=== PATIENT | female | born 1995 | race Caucasian/White ===

== ENCOUNTER 2018-01-05 08:39 | Emergency (ER) | payer OTHER ==
[~2018-01-05] VITALS: Ht 167.6 cm; Wt 88.8 kg
[2018-01-05] MEDS ORDERED: SODIUM CHLORIDE FLUSH 10ML SYR IVF ONE (10:30)
[2018-01-05] MEDS ORDERED: SODIUM CHLORIDE 0.9% 1,000ML IVBOLUS ONE (10:30)
[2018-01-05] MEDS ORDERED: DEXAMETHASONE 4 MG/ML, 1ML IVPush ONE (10:30)
[2018-01-05] MEDS ORDERED: KETOROLAC 30 MG/1 ML IVPush ONE (10:30)
[2018-01-05] MEDS ORDERED: DEXAMETHASONE 4 MG/ML, 1ML ONE (10:40)
[2018-01-05] MEDS ORDERED: KETOROLAC 30 MG/1 ML ONE (10:40)
[2018-01-05 10:52] LABS: MEAN CORPUSCULAR HEMOGLOBIN 28.7 pg (27.0-34.8); MEAN CORPUSCULAR HGB CONC 33.7 g/dL (32.4-35.8); MEAN CORPUSCULAR VOLUME 85.2 fL (80-100); MEAN PLATELET VOLUME 8.5 fL (7.4-10.4); PLATELET COUNT 192 x10^3/uL (130-400); RED BLOOD COUNT 4.84 x10^6/uL (3.82-5.3); RED CELL DISTRIBUTION WIDTH 13.4 % (9.6-15.2)
[2018-01-05 10:59] LABS: ALANINE AMINOTRANSFERASE 105 U/L (12-78); ALBUMIN 3.8 g/dL (3.4-5.0); ANION GAP 10 mmol/L (5-15); CALCIUM 8.8 mg/dL (8.5-10.1); CHLORIDE 104 mmol/L (98-107); CREATININE 0.87 mg/dL (0.55-1.02)
[2018-01-05 11:01] LABS: ALKALINE PHOSPHATASE 139 U/L (45-117); BILIRUBIN,TOTAL 0.5 mg/dL (0.2-1.0); TOTAL PROTEIN 8.1 g/dL (6.4-8.2)
[2018-01-05 11:49] LABS: MD YES
[2018-01-05 11:58] LABS: BAND#(MANUAL) 0.43 x10^3/uL; BANDS%(MANUAL) 4 % (0-7); LYMPH#(MANUAL) 1.73 x10^3/uL (1-3.4); LYMPHS% (MANUAL) 16 % (22-44); MONOS#(MANUAL) 1.08 x10^3/uL (0.3-2.7); MONOS% (MANUAL) 10 % (2-9); REACTIVE LYMPHS # (MANUAL) 5.18 x10^3/uL (0-0); REACTIVE LYMPHS % (MANUAL) 48 % (0-0); SEG#(MANUAL) 2.38 x10^3/uL (1.8-6.8); SEGS% (MANUAL) 22 % (42-75)
[2018-01-05 12:11] LABS: <PLATELET ESTIMATE> ADEQUATE; <PLT MORPHOLOGY> NORMAL PLT MORPH; <RBC MORPHOLOGY> NORMAL
[2018-01-05 13:16] VITALS: BP 119/66
== END 2018-01-05 13:24 | disposition home or self-care (01) ==
LOC: ED 11:28
DX: J02.8 Acute pharyngitis due to other specified organisms (principal); B97.89 Other viral agents as the cause of diseases classified elsewhere; B27.00 Gammaherpesviral mononucleosis without complication
CPT/HCPCS: 36415; 76700; 80053; 85025; 86308; 93005; 96361; 96374; 96375; 99285; J1100; J1885; J7030

== ENCOUNTER 2018-01-06 17:43 | Emergency (ER) | payer OTHER ==
[~2018-01-06] VITALS: Ht 170.2 cm; Wt 88.8 kg
[2018-01-06 17:46] VITALS: BP 136/75
[2018-01-06] MEDS ORDERED: DEXAMETHASONE 4 MG TABLET ONE (18:15)
[2018-01-06] MEDS ORDERED: KETOROLAC 30 MG/1 ML ONE (18:15)
[2018-01-06] MEDS ORDERED: KETOROLAC 30 MG/1 ML IM ONE (18:30)
[2018-01-06] MEDS ORDERED: DEXAMETHASONE 4 MG TABLET PO ONE (18:30)
== END 2018-01-06 19:17 | disposition home or self-care (01) ==
LOC: ED 19:11
DX: B27.00 Gammaherpesviral mononucleosis without complication (principal); J02.9 Acute pharyngitis, unspecified
CPT/HCPCS: 87081; 87880; 96372; 99284; J1885; 87147